=== PATIENT | male | born 1995 | race Caucasian/White ===

== ENCOUNTER 2018-11-05 06:10 | Emergency (ER) | payer SELFPAY ==
[2018-11-05] MEDS ORDERED: Ketorolac Tromethamine 30 MG/ML VIAL ONE (06:45)
[2018-11-05] MEDS ORDERED: Sodium Chloride 0.9% 1,000 ML ONE (06:45)
[2018-11-05 06:59] LABS: Hemoglobin 15.1 g/dL (14.0-18.0); Mean Corpuscular Hemoglobin 29.8 pg (27.0-31.0); Mean Corpuscular Volume 87.4 fL (78.0-98.0); Platelet Count 175 thou/uL (130-400); RBC Distribution Width 11.5 % (11.5-14.5); Red Blood Cell (RBC) Count 5.06 mill/uL (4.70-6.10)
[2018-11-05 07:00] LABS: #Basophils 0.1 thou/uL (0.0-0.2); #Eosinphils 0.1 thou/uL (0.0-0.7); #Lymphocytes 2.1 thou/uL (1.20-3.40); #Monocytes 0.4 thou/uL (0.11-0.59); #Neutrophils 5.4 thou/uL (1.40-6.50); %Basophils 0.9 % (0.0-1.0); %Eosinophils 0.9 % (0.0-10.0); %Lymphocytes 26.5 % (21.0-51.0); %Monocytes 4.8 % (0.0-10.0); %Neutrophils 66.9 % (42.0-75.0)
[2018-11-05 07:06] LABS: Carbon Dioxide 25 mmol/L (22-29); Chloride 103 mmol/L (98-107); Potassium 4.8 mmol/L (3.5-5.1); Sodium 140 mmol/L (136-145)
[2018-11-05 07:07] LABS: Albumin 4.8 g/dL (3.5-5.0); Alkaline Phosphatase 51 U/L (40-150); BUN (Urea Nitrogen) 16 mg/dL (8.9-20.6); Bilirubin, Total 1.5 mg/dL (0.2-1.2); Calc. Creatinine Clearance 0 mL/min (70-130); Calcium 9.8 mg/dL (7.8-10.44); Estimated GFR-MDRD Greater than 90; Globulin 2.4 g/dL (2.4-3.5); Glucose 131 mg/dL (70-105); Protein, Total 7.2 g/dL (6.0-8.3)
[2018-11-05 07:08] LABS: ALT (SGPT) 26 U/L (8-55); AST (SGOT) 24 U/L (5-34); Anion Gap 15 mmol/L (10-20); Lipase Less than 4 U/L (8-78)
[2018-11-05 07:49] LABS: Clarity Clear (Clear); Glucose, Urine (Dipstick) Negative (Negative); Leukocyte Negative (Negative); Nitrite Negative (Negative); Protein, Urine (Dipstick) Negative (Neg-Trace); Urobilinogen 0.2 mg/dL (Less than 2)
[2018-11-05 07:50] LABS: Bilirubin Negative (Negative); Blood, Urine Negative (Negative)
--- NOTE | 2018-11-05 07:50 | CT ---
CT OF THE ABDOMEN AND PELVIS WITHOUT IV CONTRAST: HISTORY: Right-sided flank pain for 2 days. COMPARISON: None. FINDINGS: Lung bases are clear. The unopacified, liver, spleen, pancreas, adrenal glands, and kidneys are normal appearing. No hydro nephrosis is evident. No renal or ureteral calculus is noted. There is a normal appendix in the right lower quadrant of the abdomen. There is a moderate amount of retained stool within the colon and rectum. The bladder, rectum, and perirectal soft tissues appear within normal limits. No definite free fluid or enlarged lymph nodes are evident. No acute osseous abnormality is evident. IMPRESSION: 1. No renal or ureteral calculus. 2. Normal appendix. 3. Moderate amount of retained stool within the colon. POS: BH
== END 2018-11-05 08:05 | disposition home or self-care (01) ==
LOC: MADERS 06:10
DX: R10.9 Unspecified abdominal pain (principal); F90.9 Attention-deficit hyperactivity disorder, unspecified type; J45.909 Unspecified asthma, uncomplicated; F41.9 Anxiety disorder, unspecified; F32.9 Major depressive disorder, single episode, unspecified; F17.290 Nicotine dependence, other tobacco product, uncomplicated
CPT/HCPCS: 74176; 80053; 81003; 83690; 85025; 96361; 96374; J1885; J7050